=== PATIENT | female | born 1940 | race Caucasian/White ===

== ENCOUNTER → 2017-01-28 | Outpatient (CLI) | payer OTHER ==
[~2017-01-28] MED LIST: CIPR500T94 PO; LEVO50TA5 PO; LISI-338 PO; PRAV20TA2 PO
[2017-01-28 12:00] LABS: CALCIUM 8.7 mg/dL (8.5-10.1); GFR 53.8
== END | disposition home or self-care (01) ==
LOC: LAB 10:38
PROVIDERS: ATTEND Internal Medicine Cardiovascular Disease
DX: R94.31 Abnormal electrocardiogram [ECG] [EKG] (principal); R06.09 Other forms of dyspnea
CPT/HCPCS: 36415; 80048

== ENCOUNTER → 2017-12-05 | Outpatient (CLI) | payer OTHER ==
[~2017-12-05] MED LIST changes: +IOHEXOL 240 MG/ML 50ML VIAL. ONE; +IOHEXOL 240 MG/ML 50ML VIAL. PO ONE; +IOHEXOL 300 MG/ML 75 ML VIAL. IV ONE
--- NOTE | 2017-12-05 14:49 | RAD ---
CT scan of the abdomen and pelvis with contrast 12/05/2017 Clinical history: Chronic left-sided abdominal pain with nocturia and hematuria. Fatigue. TECHNIQUE: After the oral and intravenous administration of contrast, contiguous, 5 mm axial sections were obtained through the abdomen and pelvis. 75 cc of Omnipaque 350 were administered intravenously during this examination. One or more of the following individualized dose reduction techniques were utilized for this study: 1. Automated exposure control. 2. Adjustment of the mA and/or kV according to patient size. 3. Use of iterative reconstruction technique. FINDINGS: Images through the lung bases demonstrate mild cardiomegaly. Scattered coronary calcifications are seen. Minimal dependent subsegmental atelectasis is seen involving both lower lobes. The liver is mildly enlarged measuring 20 cm in length. Decreased attenuation of the liver parenchyma is seen consistent with mild fatty infiltration. The spleen, pancreas, adrenal glands and kidneys are within normal limits. Moderate atherosclerotic calcification of the abdominal aorta is seen. The abdominal aorta tapers normally. Calcified gallstones are seen within the gallbladder. No free fluid or free air is seen within the abdomen. There is no evidence of bowel obstruction. A focal area of wall thickening is seen involving the mid transverse colon. This measures 5 cm in length. Increased density is seen within the adjacent fat. These findings could be seen with a focal colitis; however, a neoplasm (colon cancer) could have an identical appearance and is not excluded. Clinical correlation is recommended. Prominent mesenteric lymph nodes are seen near this mass which measure 5 mm to 1.1 cm in size. They could be reactive. Neoplastic involvement is not excluded. Images through the pelvis demonstrate the urinary bladder distended with urine. Calcifications are seen within the pelvis consistent with phleboliths. No adnexal mass is seen. No free fluid is noted. Mild S-shaped curvature of the thoracolumbar spine is seen. Degenerative changes are seen involving the lower thoracic and throughout the lumbar spine and both hips. IMPRESSION: 5 cm focal area of wall thickening is seen involving the mid transverse colon. Increased density is seen within the adjacent fat. This findings could represent a focal colitis; however, a neoplasm (colon cancer) could have a similar appearance and is not excluded. Clinical correlation is recommended. Electronically signed by: Morgan Mckenzie MD (12/05/2017 2:46 PM) [id number]
== END | disposition home or self-care (01) ==
LOC: CT 12:33
PROVIDERS: ATTEND Family Medicine
DX: N39.0 Urinary tract infection, site not specified (principal); R10.12 Left upper quadrant pain; R10.32 Left lower quadrant pain; R35.1 Nocturia; R53.83 Other fatigue
CPT/HCPCS: 74177; Q9966; Q9967

== ENCOUNTER 2017-12-08 11:16 | Observation (INO) | payer OTHER ==
[~2017-12-08] VITALS: Ht 162.6 cm; Wt 91.7 kg
[~2017-12-08 11:16] MED LIST changes: -IOHEXOL 240 MG/ML 50ML VIAL. ONE; -IOHEXOL 240 MG/ML 50ML VIAL. PO ONE; -IOHEXOL 300 MG/ML 75 ML VIAL. IV ONE
[2017-12-08] MEDS ORDERED: POTA10TA10 PO (13:13)
[2017-12-08] MEDS ORDERED: FURO20TA3 PO (13:13)
[2017-12-08] MEDS ORDERED: ONDANSETRON PF 4 MG/2 ML VIAL. IV PRN (13:15)
[2017-12-08] MEDS ORDERED: IOHEXOL 240 MG/ML 50ML VIAL. ONE (13:15)
[2017-12-08 13:19] VITALS: BP 151/76
[2017-12-08 13:26] LABS: BASO # 0.1 x10^3/uL (0.0-0.2); BASO % 1 % (0-3); EOS % 0 % (0-3); HEMATOCRIT 33.3 % (36.0-47.0); HEMOGLOBIN 11.2 g/dL (12.0-15.5); LYMPH # 1.9 x10^3/uL (1.0-4.8); LYMPH % 18 % (24-48); MEAN CORPUSCULAR HEMOGLOBIN 30 pg (25-35); MEAN CORPUSCULAR HGB CONC 34 g/dL (31-37); MEAN CORPUSCULAR VOLUME 88 fL (79-100); MONO # 2.1 x10^3/uL (0.0-1.1); MONO % 20 % (0-9); NEUT # 6.3 x10^3uL (1.8-7.7); NEUT % 61 % (31-73); PLATELET COUNT 104 x10^3/uL (140-400); RED BLOOD COUNT 3.79 x10^6/uL (3.50-5.40); RED CELL DISTRIBUTION WIDTH 16.2 % (11.5-14.5); WHITE BLOOD COUNT 10.5 x10^3/uL (4.0-11.0)
[2017-12-08 13:38] LABS: ALBUMIN 3.7 g/dL (3.4-5.0); ALBUMIN/GLOBULIN RATIO 0.9 (1.0-1.7); CALCIUM 8.6 mg/dL (8.5-10.1); CREATININE 0.9 mg/dL (0.6-1.0); GFR 60.6; TOTAL BILIRUBIN 0.7 mg/dL (0.2-1.0); TOTAL PROTEIN 7.8 g/dL (6.4-8.2)
[2017-12-08] MEDS ORDERED: MORPHINE SULFATE 2 MG/ML DISP.SYRIN. IV PRN (14:00)
[2017-12-08 14:06] LABS: AMYLASE 44 U/L (25-115); LIPASE 62 U/L (73-393)
[2017-12-08 14:13] LABS: % BANDS 6 % (0-9); % BASOS 0 % (0-3); % EOS 0 % (0-5); % LYMPHS 15 % (24-48); % METAS 1 % (0-0); % MONOS 18 % (0-10); % MYELOS 1 % (0-0); % SEGS 59 % (35-66); PLT ESTIMATE DECREASED (ADEQUATE)
[2017-12-08 15:11] VITALS: BP 130/74
[2017-12-08] MEDS ORDERED: MORPHINE SULFATE 4 MG/ML DISP.SYRIN. IV PRN (15:52)
[2017-12-08] MEDS: IV NORMAL SALINE 1,000ML 1,000 ML IV SCH ×2 (17:11→23:15)
--- NOTE | 2017-12-08 18:41 | NUR ---
NURSING ADMISSION NOTE: Patient arrived to room 123 at 1235 via wheelchair and accompanied by admission perpetual inventory clerk. Patient oriented to room, call light/TV, and bathroom.
[2017-12-08 19:21] LABS: CLARITY,URINE HAZY; COLOR,URINE YELLOW
[2017-12-08 19:22] LABS: BACTERIA,URINE 0 /HPF (0-FEW); BILIRUBIN,URINE NEG (NEG); GLUCOSE,URINE NEG (NEG); NITRITE,URINE NEG (NEG); RBC,URINE OCC /HPF (0-2); SQUAMOUS EPITHELIAL CELL,UR MOD /LPF; UROBILINOGEN,URINE 0.2 mg/dL (0.2 mg/dL); WBC,URINE OCC /HPF (0-4)
[2017-12-08 19:23] VITALS: BP 130/69
[2017-12-08] MEDS: LACTOBACILLUS RHAMNOSUS GG 1 CAPSULE. PO SCH (21:26)
[2017-12-08] MEDS: metroNIDAZOLE 500 MG TABLET PO SCH (21:26)
[2017-12-08 23:13] VITALS: BP 148/69
[2017-12-09 05:23] VITALS: BP 113/65
[2017-12-09 06:37] LABS: BASO % 1 % (0-3); EOS % 0 % (0-3); HEMATOCRIT 27.6 % (36.0-47.0); HEMOGLOBIN 9.4 g/dL (12.0-15.5); LYMPH # 1.3 x10^3/uL (1.0-4.8); LYMPH % 16 % (24-48); MEAN CORPUSCULAR HEMOGLOBIN 30 pg (25-35); MEAN CORPUSCULAR HGB CONC 34 g/dL (31-37); MEAN CORPUSCULAR VOLUME 87 fL (79-100); MONO # 2.2 x10^3/uL (0.0-1.1); MONO % 26 % (0-9); NEUT # 4.9 x10^3uL (1.8-7.7); NEUT % 57 % (31-73); PLATELET COUNT 88 x10^3/uL (140-400); RED BLOOD COUNT 3.17 x10^6/uL (3.50-5.40); RED CELL DISTRIBUTION WIDTH 15.8 % (11.5-14.5); WHITE BLOOD COUNT 8.5 x10^3/uL (4.0-11.0)
[2017-12-09 06:39] LABS: CALCIUM 8.3 mg/dL (8.5-10.1); CREATININE 0.8 mg/dL (0.6-1.0); GFR 69.4; POTASSIUM 4.1 mmol/L (3.5-5.1)
[2017-12-09] MEDS: LACTOBACILLUS RHAMNOSUS GG 1 CAPSULE. PO SCH (08:59)
[2017-12-09] MEDS: metroNIDAZOLE 500 MG TABLET PO SCH ×2 (08:59→14:25)
[2017-12-09] MEDS ORDERED: PNEUMOC CONJ VACC 23-VALENT 0.5 ML VIAL. VAX IM ONE (09:00)
[2017-12-09] MEDS: IV NORMAL SALINE 1,000ML 1,000 ML IV SCH (09:04)
[2017-12-09] MEDS ORDERED: LEVO500T59 PO (09:58)
[2017-12-09] MEDS ORDERED: METR500T PO (09:58)
[2017-12-09 10:45] VITALS: BP 115/68
--- NOTE | 2017-12-09 14:50 | NUR ---
Discharge Note: JANINA NANCE Discharge instructions and discharge home medications reviewed with PATIENT and a copy given. All questions have been answered and understanding verbalized. The following instructions and handouts were given: MEDICATIONS, FOLLOW UP INSTRUCTIONS, EDUCATIONAL HANDOUTS GIVEN. Discontinued lines and drains: PERIPHERAL IV DISCONTINUED WITH NO COMPLICATIONS. Patient discharged to HOME with FAMILY via PRIVATE VEHICLE.
--- NOTE | 2017-12-10 02:30 | DS ---
DATE OF DISCHARGE: 12/09/2017 HOSPITAL COURSE: The patient is a 77-year-old female who came in with abdominal pain. She had a CT scan done of her abdomen and pelvis and that demonstrated an 5 cm area of wall thickening involving the mid transverse colon. The patient received IV antibiotic therapy and she made excellent progress. She wanted to be discharged home to be followed up with her for a wedding coming up, but in any case demanded to be discharged. The patient's hemoglobin dropped from 11.2 down to 9.4 and 27. The patient did improve with IV antibiotics. We will continue on such as an outpatient. Otherwise, the patient made good progress during the rest of her hospitalization. There were no complications. See MRAD. Decreased activity. She is to follow up with Gastroenterology for further testing and make sure that we follow up on her for her anemia as well. She will continue on metronidazole and Levaquin orally. IMPRESSION: Therefore of colitis, probably infectious; anemia of chronic disease, abdominal pain. The patient will be discharged home. See EMRAD. Probably stay on a low fiber diet until this clears up and also follow up with Gastroenterology. Decreased activity. PLAN: As above. ANTHONY ALCALA MD DR: VICTOR M/abilio JOB#: [id number] / [id number]
== END 2017-12-09 14:50 | disposition home or self-care (01) ==
LOC: 1 SOUTH 12:16 → INTOOBSV 12:16
PROVIDERS: ADMIT Family Medicine; ATTEND Family Medicine
DX: K52.9 Noninfective gastroenteritis and colitis, unspecified (principal); A08.8 Other specified intestinal infections; D63.8 Anemia in other chronic diseases classified elsewhere; J44.9 Chronic obstructive pulmonary disease, unspecified; D37.4 Neoplasm of uncertain behavior of colon; E03.9 Hypothyroidism, unspecified; R93.3 Abnormal findings on diagnostic imaging of other parts of digestive tract; R59.0 Localized enlarged lymph nodes; Z23 Encounter for immunization
CPT/HCPCS: 36415; 80048; 80053; 81001; 82150; 83690; 85007; 85025; 87040; 87086; 90471; 90732; 96365; 96366; G0378; G0379; J1956; J7030

== ENCOUNTER 2018-04-25 21:42 | Inpatient (IN) | payer OTHER ==
[~2018-04-25] VITALS: Ht 157.5 cm; Wt 81.2 kg
[~2018-04-25 21:42] MED LIST changes: -ALBUTEROL SULFATE 2.5 MG/3 ML NEBU. NEB PRN; -ATROPINE 0.5 MG/5 ML DISP.SYRIN. IV PRN; -DOXY100T PO; -IV RINGERS SOLUTION,LACTATED 1,000 ML IV SCH; -LACT1CAP19 PO; -LIDOCAINE 2% PF Vial for OR 5 ML VIAL. ONE; -NALOXONE 0.4 MG/ML VIAL. IV PRN; -ONDA4TAB12 PO; -ONDANSETRON PF 4 MG/2 ML VIAL. IV PRN; -PROPOFOL 20 ML IV ONE; -diphenhydrAMINE 50 MG/ML VIAL IV PRN
--- NOTE | 2018-04-25 22:15 | PHYS DOC ---
Adult General Chief Complaint Chief Complaint: POST-OP PROBLEM HPI HPI 77-year-old female presents with fever. The patient had an EGD and colonoscopy today. Her discharge instructions stated that if she had a fever above 100 she should come to the emergency room. Patient's caregiver states that she had a fever of 102 at home when they became concerned so they came to emergency room. Patient denies chills. She denies shortness of breath, chest pain, cough. She has no additional complaints. She is a little worried about her results from today as some further testing including a CT scan was ordered. Review of Systems Review of Systems Constitutional: Fever [] Eyes: Denies change in visual acuity, redness, or eye pain [] HENT: Denies nasal congestion or sore throat [] Respiratory: Denies cough or shortness of breath [] Cardiovascular: No additional information not addressed in HPI [] GI: Denies abdominal pain, nausea, vomiting, bloody stools or diarrhea [] : Denies dysuria or hematuria [] Musculoskeletal: Denies back pain or joint pain [] Integument: Denies rash or skin lesions [] Neurologic: Denies headache, focal weakness or sensory changes [] Endocrine: Denies polyuria or polydipsia [] All other systems were reviewed and found to be within normal limits, except as documented in this note. Allergies Allergies Allergies Coded Allergies Type Severity Reaction Last Updated Verified No Known Allergies Allergy Unknown 02/08/14 Yes Physical Exam Physical Exam Constitutional: Well developed, well nourished, no acute distress, non-toxic appearance. [] HENT: Normocephalic, atraumatic, bilateral external ears normal, oropharynx moist, no oral exudates, nose normal. [] Eyes: PERRLA, EOMI, conjunctiva normal, no discharge. [] Neck: Normal range of motion, no tenderness, supple, no stridor. [] Cardiovascular:Heart rate regular rhythm, 3/6 systolic murmur [] Lungs & Thorax: Bilateral breath sounds clear to auscultation [] Abdomen: Bowel sounds normal, soft, no tenderness, no masses, no pulsatile masses. [] Skin: Warm, dry, no erythema, no rash. [] Back: No tenderness, no CVA tenderness. [] Extremities: No tenderness, no cyanosis, no clubbing, ROM intact, no edema. [] Neurologic: Alert and oriented, normal motor function, normal sensory function, no focal deficits noted. [] Psychologic: Affect normal, judgement normal, mood normal. [] EKG EKG [] Radiology/Procedures Radiology/Procedures [] Impressions: Indication:post operative fever TECHNIQUE:PA and lateral views of the chest COMPARISON: None FINDINGS: Patient is slightly rotated to the right side. There is S-shaped scoliosis of the thoracal lumbar spine. Heart is normal in size. Diffuse bilateral interstitial opacities are seen without focal consolidation. No pneumothorax or pleural effusion. Visualized bony thorax is within normal limits. IMPRESSION: Bilateral interstitial process likely secondary to atypical/viral infection. Electronically signed by: Yariel Chen DO (04/25/2018 11:06 PM) [facility] DICTATED AND SIGNED BY: YARIEL CHEN DO DATE: 04/25/18 [id number] CC: COREY WATTS DO; ANTHONY ALCALA MD ~ Course & Med Decision Making Course & Med Decision Making Pertinent Labs and Imaging studies reviewed. (See chart for details) Patient's chest x-ray is negative for acute finding. Her labs are significant for hemoglobin of 7.7. Review of her chart shows her hemoglobin several months ago was 9.4 and 11.2. Her Hemoccult was grossly negative; micro is pending. The patient has been feeling mildly short of breath, but this does not necessarily sound worse than baseline. I will hold off on transfusing her at this point. If her hemoglobin drops any further, she likely needs a transfusion. I discussed the case with Dr. Alcala and he has agreed to admission for further management. He advised transfusion with a hemoglobin below 7. The Hemoccult micro-was negative. [] Dragon Disclaimer Dragon Disclaimer This electronic medical record was generated, in whole or in part, using a voice recognition dictation system. Departure Departure: Referrals: ANTHONY ALCALA MD (PCP) COREY WATTS DO Apr 25, 2018 22:15
[2018-04-25 22:42] LABS: BASO # 0.1 x10^3/uL (0.0-0.2); BASO % 1 % (0-3); EOS % 0 % (0-3); HEMATOCRIT 24.3 % (36.0-47.0); HEMOGLOBIN 7.7 g/dL (12.0-15.5); LYMPH # 2.1 x10^3/uL (1.0-4.8); LYMPH % 17 % (24-48); MEAN CORPUSCULAR HEMOGLOBIN 25 pg (25-35); MEAN CORPUSCULAR HGB CONC 32 g/dL (31-37); MEAN CORPUSCULAR VOLUME 78 fL (79-100); MONO % 15 % (0-9); NEUT # 8.7 x10^3uL (1.8-7.7); NEUT % 67 % (31-73); PLATELET COUNT 155 x10^3/uL (140-400); RED BLOOD COUNT 3.12 x10^6/uL (3.50-5.40); WHITE BLOOD COUNT 12.9 x10^3/uL (4.0-11.0)
[2018-04-25 22:50] LABS: COLOR,URINE YELLOW
[2018-04-25 22:51] LABS: BACTERIA,URINE FEW /HPF (0-FEW); BILIRUBIN,URINE NEG (NEG); CLARITY,URINE HAZY; GLUCOSE,URINE NEG (NEG); NITRITE,URINE NEG (NEG); RBC,URINE 0 /HPF (0-2); SQUAMOUS EPITHELIAL CELL,UR MOD /LPF; UROBILINOGEN,URINE 0.2 mg/dL (0.2 mg/dL)
[2018-04-25 22:53] LABS: ALBUMIN 3.4 g/dL (3.4-5.0); ALBUMIN/GLOBULIN RATIO 0.9 (1.0-1.7); CALCIUM 8.2 mg/dL (8.5-10.1); CREATININE 0.9 mg/dL (0.6-1.0); GFR 60.6; POTASSIUM 4.2 mmol/L (3.5-5.1); TOTAL BILIRUBIN 0.5 mg/dL (0.2-1.0); TOTAL PROTEIN 7.4 g/dL (6.4-8.2)
[2018-04-25 23:09] LABS: % LYMPHS 12 % (24-48); % SEGS 72 % (35-66); HYPOCHROMIA SLIGHT; PLT ESTIMATE ADEQUATE (ADEQUATE)
--- NOTE | 2018-04-25 23:09 | RAD ---
Indication:post operative fever TECHNIQUE:PA and lateral views of the chest COMPARISON: None FINDINGS: Patient is slightly rotated to the right side. There is S-shaped scoliosis of the thoracal lumbar spine. Heart is normal in size. Diffuse bilateral interstitial opacities are seen without focal consolidation. No pneumothorax or pleural effusion. Visualized bony thorax is within normal limits. IMPRESSION: Bilateral interstitial process likely secondary to atypical/viral infection. Electronically signed by: Yariel Chen DO (04/25/2018 11:06 PM) [facility]
[2018-04-25 23:10] LABS: % BANDS 10 % (0-9); % MONOS 6 % (0-10)
[2018-04-25 23:50] LABS: FECAL OB PT NEGATIVE (NEG)
[2018-04-26] VITALS (13 sets, daily range): BP systolic 105–150; BP diastolic 57–79
--- NOTE | 2018-04-26 00:40 | NUR ---
The patient, JANINA NANCE, 77 y/o, F admitted by ANTHONY ALCALA MD, was given written information regarding hospital policies, unit procedures and contact persons. Valuables were checked and noted. PT with history of constipation who had a colonoscopy 04/25, see report for details. Biopsy was taken. PT told to report to ER with temperatures over 100. PT with a temperature of 102 at home. PT upon lab draw discovered to have Hg of 7.7, admitted to the hospital for further evaluation. PT is otherwise symptom free. PT transported via EMS. PT walked from cart to bed. PT was noted to be steady on feet. PT oriented to unit and changed into a gown. PT insisting on staying in own shirt under gown, told that was fine. PT has stress incontinence and given pullup brief to change into. PT belongings noted. PT assessed and readied for bed, advised of lab draw in am.
[2018-04-26 06:26] LABS: BASO # 0.1 x10^3/uL (0.0-0.2); BASO % 1 % (0-3); EOS % 0 % (0-3); HEMATOCRIT 21.5 % (36.0-47.0); LYMPH # 1.9 x10^3/uL (1.0-4.8); LYMPH % 21 % (24-48); MEAN CORPUSCULAR HEMOGLOBIN 25 pg (25-35); MEAN CORPUSCULAR HGB CONC 32 g/dL (31-37); MEAN CORPUSCULAR VOLUME 78 fL (79-100); MONO # 2.4 x10^3/uL (0.0-1.1); MONO % 26 % (0-9); NEUT % 53 % (31-73); PLATELET COUNT 115 x10^3/uL (140-400); RED BLOOD COUNT 2.77 x10^6/uL (3.50-5.40); RED CELL DISTRIBUTION WIDTH 15.9 % (11.5-14.5); WHITE BLOOD COUNT 9.4 x10^3/uL (4.0-11.0)
[2018-04-26 06:28] LABS: CALCIUM 8.1 mg/dL (8.5-10.1); CREATININE 0.9 mg/dL (0.6-1.0); GFR 60.6; POTASSIUM 3.7 mmol/L (3.5-5.1)
[2018-04-26] MEDS: LEVOTHYROXINE 175 MCG TABLET PO SCH (07:57)
[2018-04-26] MEDS: PANTOPRAZOLE 40 MG TABLET. PO SCH (07:57)
--- NOTE | 2018-04-26 08:00 | NUR ---
Pt is alert and oriented x4, forgetful. Pt asked RN why she needed to be here, RN educated patient on her hemoglobin level and that Dr Arnett was thinking about what to do. PT verbalized understanding. Denies any pain. Will continue to monitor.
[2018-04-26] MEDS: SUCRALFATE 1 GM TABLET. PO SCH ×4 (08:17→20:49)
[2018-04-26] MEDS: POTASSIUM CHLORIDE 10 MEQ TABLET.ER. PO SCH (08:18)
--- NOTE | 2018-04-26 09:35 | NUR ---
Blood transfusion started at 0935. Tubing Primed with NS and then primed with blood. Transfusion started at 60ml/hr, patient closely monitored for 15 min. No reaction noted, transfusion increased to 150ml/hr. Will continue to monitor.
[2018-04-26] MEDS ORDERED: FURO20TA3 PO (09:43)
[2018-04-26] MEDS ORDERED: ONDA4TAB12 PO (09:43)
--- NOTE | 2018-04-26 11:35 | NUR ---
Blood completed, no signs of reaction. Pt tolerated well.
[2018-04-26] MEDS: LACTOBACILLUS RHAMNOSUS GG 1 CAPSULE. PO SCH ×2 (11:44→20:49)
[2018-04-26] MEDS: cefTRIAXone IV Push 1 GM VIAL. IVP SCH (11:45)
[2018-04-26] MEDS: DOXYCYCLINE HYCLATE 100 MG TABLET PO SCH ×2 (11:45→20:49)
--- NOTE | 2018-04-26 12:14 | NUR ---
Blood transfusion started at 1157. Tubing Primed with NS and then primed with blood. Transfusion started at 60ml/hr, patient closely monitored for 15 min. No reaction noted, transfusion increased to 150ml/hr. Will continue to monitor.
[2018-04-26] MEDS ORDERED: FUROSEMIDE 20 MG/2 ML VIAL IVP ONE (14:00)
--- NOTE | 2018-04-26 14:40 | NUR ---
Pts blood transfusions complete. Pts O2 sats about 93% on RA, was 96-97%, crackles audible in bases. Pt takes 20mg po lasix daily. RN notified Dr Arnett of findings, orders for IV lasix and cxray. Will continue to monitor.
--- NOTE | 2018-04-26 15:21 | RAD ---
AP and Lateral Views of the Chest 04/26/2018 2:38 PM Indication: SHORT OF AIR Comparison: 2 views of the chest, yesterday Findings: Bilateral infiltrates are improved in the interim. No pneumothorax, effusion, or focal consolidative process is identified on today's study. Heart size is normal. Bony thorax is unchanged. IMPRESSION: Interval improvement of bilateral infiltrates in the interim Electronically signed by: Villa Torres MD (04/26/2018 3:17 PM) [id number]
[2018-04-27 06:13] VITALS: BP 106/65
[2018-04-27 06:30] LABS: BASO % 1 % (0-3); EOS % 0 % (0-3); HEMATOCRIT 27.6 % (36.0-47.0); LYMPH # 1.8 x10^3/uL (1.0-4.8); LYMPH % 22 % (24-48); MEAN CORPUSCULAR HEMOGLOBIN 26 pg (25-35); MEAN CORPUSCULAR HGB CONC 33 g/dL (31-37); MEAN CORPUSCULAR VOLUME 80 fL (79-100); MONO # 2.3 x10^3/uL (0.0-1.1); MONO % 28 % (0-9); NEUT % 50 % (31-73); PLATELET COUNT 113 x10^3/uL (140-400); RED BLOOD COUNT 3.44 x10^6/uL (3.50-5.40); RED CELL DISTRIBUTION WIDTH 16.9 % (11.5-14.5); WHITE BLOOD COUNT 8.1 x10^3/uL (4.0-11.0)
[2018-04-27] MEDS: LEVOTHYROXINE 175 MCG TABLET PO SCH (07:45)
[2018-04-27] MEDS: PANTOPRAZOLE 40 MG TABLET. PO SCH (07:45)
[2018-04-27] MEDS: DOXYCYCLINE HYCLATE 100 MG TABLET PO SCH ×2 (08:42→20:26)
[2018-04-27] MEDS: LACTOBACILLUS RHAMNOSUS GG 1 CAPSULE. PO SCH ×2 (08:42→20:26)
[2018-04-27] MEDS: POTASSIUM CHLORIDE 10 MEQ TABLET.ER. PO SCH (08:43)
[2018-04-27] MEDS: SUCRALFATE 1 GM TABLET. PO SCH ×4 (08:44→20:26)
[2018-04-27] MEDS: cefTRIAXone IV Push 1 GM VIAL. IVP SCH (08:49)
[2018-04-27] MEDS ORDERED: IOHEXOL 240 MG/ML 50ML VIAL. PO ONE (10:30)
[2018-04-27] MEDS ORDERED: IOHEXOL 300 MG/ML 75 ML VIAL. IV ONE (10:30)
[2018-04-27 10:49] VITALS: BP 116/71
--- NOTE | 2018-04-27 13:04 | RAD ---
PQRS Compliance Statement: One or more of the following individualized dose reduction techniques were utilized for this examination: 1. Automated exposure control 2. Adjustment of the mA and/or kV according to patient size 3. Use of iterative reconstruction technique CT abdomen/pelvis with contrast 04/27/2018 11:34 AM INDICATION: Colon cancer. COMPARISON: CT abdomen/pelvis December 05, 2017 TECHNIQUE: Multiple axial CT images of the abdomen and pelvis were obtained after the intravenous administration of 75 mL Omnipaque 300. Coronal and sagittal reformats are provided. FINDINGS: There is a 4 mm solid noncalcified pulmonary nodule in the right lower lobe (series 2, image 5). Heart size is within normal limits. No suspicious hepatic lesion is identified. Spleen is nonenlarged. Adrenal glands are normal. Pancreas is normal in appearance. Calcified gallstones are identified within the gallbladder. The abdominal aorta is normal in course and caliber. There is no abdominal free fluid. There is no free intraperitoneal air. The kidneys enhance symmetrically. There is no suspicious renal mass. There is no hydronephrosis. There are no suspected calculi within the kidneys, ureters or urinary bladder. There is a 5 mm hypodense lesion in the anterior interpolar left kidney which is statistically favor to represent a simple cyst. There is an apple core lesion involving the proximal transverse colon measuring approximately 5.5 cm with circumferential wall thickening. Proximal fecal stasis is noted. The distal bowel appears predominantly decompressed. There is a pericolonic mesenteric lymph node measuring 11 mm by short axis (series 2, image 66) suspicious for fred metastasis. Additional pericolonic lymph node measures 9 mm by short axis with rounded morphology and abnormal enhancement (series 2, image 81) suspicious for fred metastasis. There is a soft tissue nodule in the anterior omentum measuring 7 mm (series 2, image 92). Left common iliac lymph node is pathologically enlarged measuring 2.0 cm suspicious for fred metastasis. Alissa hepatis lymph nodes are borderline in size measuring 8 mm and likely reactive. These findings appear progressed since December 05, 2017. For example, the left common iliac lymph node is new. Mesenteric lymph nodes are increased in size. Urinary bladder is within normal limits given degree of distention. Uterus and adnexa are normal. There is dextroconvex scoliosis of the lumbar spine with apex dextrocurvature at L2-L3. There is right lateral listhesis of L3 on L4. No suspicious osseous lesions are identified. IMPRESSION: 1. Redemonstration of a 5.5 cm segment of transverse colon with abnormal circumferential wall thickening compatible with an apple core lesion. Pericolonic and mesenteric lymph nodes are identified which appear pathologically enlarged and progressed since the prior examination. Degree of adjacent inflammation appears similar. Findings are in keeping with the provided history of colon cancer. 2. New left common iliac lymph node which is pathologically enlarged measuring 2.0 cm. 3. Right lower lobe solid noncalcified pulmonary nodule measuring 4 mm, stable. Electronically signed by: Neda Cortez MD (04/27/2018 1:00 PM) [id number]
[2018-04-27 14:38] VITALS: BP 149/84
[2018-04-27 19:23] VITALS: BP 139/75
[2018-04-27 22:53] VITALS: BP 125/67
--- NOTE | 2018-04-28 00:56 | PN ---
DATE: 04/27/2018 SUBJECTIVE: A 77-year-old female in with rectal bleeding, colon cancer, anemia, blood transfusion and a like feeling a little better after blood transfusion. OBJECTIVE: VITAL SIGNS: Blood pressure 140/80, respiratory rate 20, pulse 65, afebrile. GENERAL: The patient is alert and oriented. LUNGS: Diminished throughout, but clear. CARDIOVASCULAR: Regular sinus rhythm. The patient also receiving IV antibiotic therapy for possible pneumonia as well. The patient's otherwise CT scan of abdomen and pelvis demonstrates the apple core lesion of the transverse colon. IMPRESSION: 1. Pneumonia of unspecified etiology, community acquired as well as that of the apple core colon cancer lesion. We are still awaiting path report. 2. Anemia secondary to acute gastrointestinal bleed. Continue with monitoring and IV antibiotic therapy. ANTHONY ALCALA MD DR: VICTOR M/abilio JOB#: [id number] / [id number]
[2018-04-28 05:05] VITALS: BP 105/63
[2018-04-28 07:02] LABS: BASO % 1 % (0-3); EOS % 0 % (0-3); HEMATOCRIT 27.4 % (36.0-47.0); HEMOGLOBIN 9.1 g/dL (12.0-15.5); LYMPH # 1.5 x10^3/uL (1.0-4.8); LYMPH % 20 % (24-48); MEAN CORPUSCULAR HEMOGLOBIN 27 pg (25-35); MEAN CORPUSCULAR HGB CONC 33 g/dL (31-37); MEAN CORPUSCULAR VOLUME 80 fL (79-100); MONO # 1.7 x10^3/uL (0.0-1.1); MONO % 23 % (0-9); NEUT # 4.1 x10^3uL (1.8-7.7); NEUT % 56 % (31-73); PLATELET COUNT 116 x10^3/uL (140-400); RED BLOOD COUNT 3.42 x10^6/uL (3.50-5.40); RED CELL DISTRIBUTION WIDTH 17.2 % (11.5-14.5); WHITE BLOOD COUNT 7.4 x10^3/uL (4.0-11.0)
[2018-04-28] MEDS: LEVOTHYROXINE 175 MCG TABLET PO SCH (07:51)
[2018-04-28] MEDS: PANTOPRAZOLE 40 MG TABLET. PO SCH (07:51)
[2018-04-28] MEDS: POTASSIUM CHLORIDE 10 MEQ TABLET.ER. PO SCH (08:45)
[2018-04-28] MEDS: DOXYCYCLINE HYCLATE 100 MG TABLET PO SCH (08:46)
[2018-04-28] MEDS: LACTOBACILLUS RHAMNOSUS GG 1 CAPSULE. PO SCH (08:46)
[2018-04-28] MEDS: SUCRALFATE 1 GM TABLET. PO SCH (08:46)
[2018-04-28] MEDS: cefTRIAXone IV Push 1 GM VIAL. IVP SCH (08:48)
[2018-04-28] MEDS ORDERED: DOXY100T PO (10:16)
[2018-04-28] MEDS ORDERED: LACT1CAP19 PO (10:16)
--- NOTE | 2018-04-28 11:19 | NUR ---
NURSING DISCHARGE NOTE: Patient discharged to home with home health services via ambulation and accompanied by her tanker truck driver. Verbal and written medication and follow up instructions were given and understanding was acknowledged.
== END 2018-04-28 10:55 | disposition home health service (06) | DRG 871 ==
LOC: ER 21:42 → 1 SOUTH 23:40
PROVIDERS: ADMIT Family Medicine; ATTEND Family Medicine
PROC: 30233N1 Transfusion of Nonautologous Red Blood Cells into Peripheral Vein, Percutaneous Approach (ICD-10-PCS; principal; 2018-04-27)
DX: A41.9 Sepsis, unspecified organism (principal); J18.9 Pneumonia, unspecified organism; K92.2 Gastrointestinal hemorrhage, unspecified; C18.9 Malignant neoplasm of colon, unspecified; D62 Acute posthemorrhagic anemia; J44.0 Chronic obstructive pulmonary disease with (acute) lower respiratory infection; N39.0 Urinary tract infection, site not specified; E61.1 Iron deficiency; D69.6 Thrombocytopenia, unspecified; I10 Essential (primary) hypertension; E87.6 Hypokalemia; B34.9 Viral infection, unspecified; E03.9 Hypothyroidism, unspecified; D64.9 Anemia, unspecified; Z79.899 Other long term (current) drug therapy
CPT/HCPCS: 36415; 71046; 74177; 80048; 80053; 81001; 82274; 83605; 85007; 85025; 85610; 85730; 86850; 86900; 86901; 86920; 87086; 87186; J0696; P9016; Q9966; Q9967; 99285-25

== ENCOUNTER → 2018-04-25 | Day surgery (SDC) | payer OTHER ==
[~2018-04-25] MED LIST changes: +ALBUTEROL SULFATE 2.5 MG/3 ML NEBU. NEB PRN; +ATROPINE 0.5 MG/5 ML DISP.SYRIN. IV PRN; +DOXY100T PO; +FURO20TA3 PO; +IV RINGERS SOLUTION,LACTATED 1,000 ML IV SCH; +LACT1CAP19 PO; +LEVO500T59 PO; +LIDOCAINE 2% PF Vial for OR 5 ML VIAL. ONE; +METR500T PO; +NALOXONE 0.4 MG/ML VIAL. IV PRN; +ONDA4TAB12 PO; +ONDANSETRON PF 4 MG/2 ML VIAL. IV PRN; +PANT20TA58 PO; +POTA10TA10 PO; +PROPOFOL 20 ML IV ONE; +SUCR1TAB35 PO; +diphenhydrAMINE 50 MG/ML VIAL IV PRN
[2018-04-25 13:18] VITALS: BP 140/72
== END | disposition home or self-care (01) ==
LOC: SURG 10:57
PROVIDERS: ATTEND Internal Medicine Gastroenterology
DX: C18.6 Malignant neoplasm of descending colon (principal); K29.50 Unspecified chronic gastritis without bleeding; D50.9 Iron deficiency anemia, unspecified; J44.9 Chronic obstructive pulmonary disease, unspecified; E03.9 Hypothyroidism, unspecified; Z79.899 Other long term (current) drug therapy; Z87.440 Personal history of urinary (tract) infections; Z87.19 Personal history of other diseases of the digestive system
CPT/HCPCS: 43239; 45380; 45381; J2704; J7120; J2001

== ENCOUNTER → 2018-05-26 | Outpatient (CLI) | payer OTHER ==
[2018-04-28 05:05] VITALS: BP 105/63
[~2018-05-26] MED LIST changes: +DOXY100T PO; +LACT1CAP19 PO; +ONDA4TAB12 PO
[2018-05-26 14:41] LABS: CALCIUM 8.9 mg/dL (8.5-10.1); CREATININE 0.8 mg/dL (0.6-1.0); GFR 69.4; POTASSIUM 3.8 mmol/L (3.5-5.1)
== END | disposition home or self-care (01) ==
LOC: LAB 13:56
PROVIDERS: ATTEND Internal Medicine Cardiovascular Disease
DX: I11.0 Hypertensive heart disease with heart failure (principal); I50.30 Unspecified diastolic (congestive) heart failure
CPT/HCPCS: 36415; 80048

== ENCOUNTER → 2018-07-17 | Outpatient (CLI) | payer OTHER ==
--- NOTE | 2018-07-17 18:30 | RAD ---
Right lower extremity venous Doppler dated 07/17/2018. No comparison available. Clinical indication: Right leg pain and edema. FINDINGS: Grayscale, color-flow and spectral waveform analysis performed to include the deep venous system of the right lower extremity. Normal compressibility, phasicity and augmentation of flow throughout. No filling defects are seen. IMPRESSION: No evidence of right lower extremity deep vein thrombosis. Electronically signed by: Keyon Webster MD (07/17/2018 6:27 PM) [facility]
== END | disposition home or self-care (01) ==
LOC: RAD 17:35
PROVIDERS: ATTEND Family Medicine
DX: M79.661 Pain in right lower leg (principal); R60.0 Localized edema
CPT/HCPCS: 93971

== ENCOUNTER → 2019-07-24 | Day surgery (SDC) | payer OTHER ==
[~2019-07-24] MED LIST changes: +ACETAMINOPHEN 325 MG TABLET PO PRN; +ALBUTEROL SULFATE 2.5 MG/3 ML NEBU. NEB PRN; +ATROPINE 0.5 MG/5 ML DISP.SYRIN. IV PRN; +HEPARIN PF 500 UNIT/5 ML DISP.SYRIN. ONE; +IV RINGERS SOLUTION,LACTATED 1,000 ML IV SCH; +LISI10TA2 PO; +MIDAZOLAM HCL PF 2 MG/2 ML VIAL. IV PRN; +ONDANSETRON PF 4 MG/2 ML VIAL. IV PRN; +PHENOL ORAL SPRAY 177ML BOTTLE. MM PRN; +PROPOFOL 20 ML IV ONE; +diphenhydrAMINE 50 MG/ML VIAL IV PRN
[2019-07-24] MEDS: IV RINGERS SOLUTION,LACTATED 1,000 ML IV SCH (09:46)
[2019-07-24 11:11] VITALS: BP 106/50
[2019-07-24] MEDS: HEPARIN PF 500 UNIT/5 ML DISP.SYRIN. IVP ONE ×2 (11:15→11:25)
== END ==
LOC: SURG 08:38
PROVIDERS: ATTEND Internal Medicine Gastroenterology
DX: Z08 Encounter for follow-up examination after completed treatment for malignant neoplasm (principal); D12.3 Benign neoplasm of transverse colon; E03.9 Hypothyroidism, unspecified; J44.9 Chronic obstructive pulmonary disease, unspecified; F41.9 Anxiety disorder, unspecified; Z98.890 Other specified postprocedural states; Z90.49 Acquired absence of other specified parts of digestive tract; Z98.0 Intestinal bypass and anastomosis status; Z85.038 Personal history of other malignant neoplasm of large intestine
CPT/HCPCS: 45385; J2704; J7120

== ENCOUNTER → 2021-01-07 | Outpatient (CLI) | payer MEDICARE ==
[2019-07-24 11:11] VITALS: BP 106/50
[~2021-01-07] MED LIST changes: -ACETAMINOPHEN 325 MG TABLET PO PRN; -ALBUTEROL SULFATE 2.5 MG/3 ML NEBU. NEB PRN; -ATROPINE 0.5 MG/5 ML DISP.SYRIN. IV PRN; -HEPARIN PF 500 UNIT/5 ML DISP.SYRIN. ONE; -IV RINGERS SOLUTION,LACTATED 1,000 ML IV SCH; -LISI-338 PO; +LISI-517 PO; +LISI10TA16 PO; -LISI10TA2 PO; -MIDAZOLAM HCL PF 2 MG/2 ML VIAL. IV PRN; -ONDANSETRON PF 4 MG/2 ML VIAL. IV PRN; -PHENOL ORAL SPRAY 177ML BOTTLE. MM PRN; -PROPOFOL 20 ML IV ONE; -diphenhydrAMINE 50 MG/ML VIAL IV PRN
--- NOTE | 2021-01-07 10:39 | RAD ---
EXAM: DUAL ENERGY X-RAY ABSORPTIOMETRY (DEXA). HISTORY: Postmenopausal screening. FINDINGS: The lowest measured T-score is 0.8 in the right hip, based on a bone mineral density of 1.0 55 g/cm^2. Refer to the worksheets for full detail. No comparison examinations are available. IMPRESSION: 1. Normal. Bone mineral density yields a T-score of -1.0 or greater. Fracture risk is low. 2. FRAX report: Not calculated. METHODOLOGY: Dual energy x-ray absorptiometry was performed to measure bone mineral density. The foll owing analysis is based on the 2019 Official Positions of the International Society for Clinical Dens itometry: Measurements of the hips and the average of L1-L4 are preferred. When the spine and/or hip cannot be feasibly measured or interpreted, or in the setting of hyperparathyroidism, distal radial bone minera l density may be measured. The lumbar spine T-score is based on the average bone mineral density of L1-L4. In the setting of art ifact or anatomic abnormality, some lumbar levels may be excluded, and the remaining levels used for calculation. A single lumbar level is not used for diagnosis, and if only a single level is available for assessment, another anatomic site will be used to assign a diagnosis. The hip T-score is based on the bone mineral density measurement of the femoral neck or total proxima l femur of either side, whichever is lowest. Bilateral mean values are not used for diagnosis. The forearm T-score is derived from 33% of the distal radius of the nondominant forearm. Electronically signed by: Disha Ku MD (01/07/2021 10:37 AM) [id number]
== END ==
LOC: DXRAD 10:03
PROVIDERS: ATTEND Family Medicine
DX: Z78.0 Asymptomatic menopausal state (principal)
CPT/HCPCS: 77080

== ENCOUNTER 2021-12-02 15:18 | Observation (INO) | payer MEDICARE ==
[~2021-12-02] VITALS: Ht 162.6 cm; Wt 87.5 kg
[~2021-12-02 15:18] MED LIST changes: -LISI-517 PO; +LISI5TAB15 PO
--- NOTE | 2021-12-02 15:53 | PHYS DOC ---
Past History Past Medical History: High Cholesterol, Hypertension Past Surgical History: No Surgical History Alcohol Use: None Drug Use: None General Adult EDM: Chief Complaint: OTHER COMPLAINTS HPI: HPI: Patient is a 81-year-old female who presents with vaginal bleeding. Symptoms been present for about 1 week and seem to be getting a little worse each day. She has not had any abdominal pain in association with the bleeding. No burning with urination. She has a history of colon cancer which is metastatic and also a history of leukemia. Patient is currently on palliative care. She denies any fever, abdominal pain, nausea, vomiting or diarrhea. No lightheadedness or weakness at this time. Review of Systems: Review of Systems: Constitutional: Denies fever Eyes: Denies change in visual acuity or eye pain HENT: Denies sore throat Respiratory: Denies shortness of breath Cardiovascular: Denies chest pain GI: Denies abd pain : Denies dysuria Musculoskeletal: Denies back or extremity injury Integument: Denies rash or skin lesions Neurologic: Denies headache, focal weakness or sensory changes All other systems were reviewed and found to be within normal limits, except as documented in this note. Allergies: Allergies: Allergies Coded Allergies Type Severity Reaction Last Updated Verified No Known Allergies Allergy Unknown 07/24/19 Yes Physical Exam: PE: Constitutional: Well developed, well nourished, no acute distress, non-toxic appearance. HENT: Normocephalic, atraumatic, bilateral external ears normal, mucosa moist, nose normal. Eyes: EOMI, conjunctiva normal, no discharge. Neck: Normal range of motion, supple, no stridor, no meningeal signs. Cardiovascular: Regular rate and rhythm Lungs & Thorax: Bilateral breath sounds clear to auscultation Abdomen: Soft, no tenderness or obvious masses Genitourinary: Normal external genitalia with dried blood present externally. On speculum examination the patient does have a little bit of blood at the cervical os. No palpable masses or tenderness on bimanual examination. Skin: Warm, dry, no erythema, no rash. Extremities: No tenderness, no cyanosis, no clubbing, ROM intact, no edema. Neurologic: Alert and oriented, normal motor function, normal sensory function, no focal deficits noted. Psychologic: Affect normal, judgement normal, mood normal. Current Patient Data: Vital Signs: Vital Signs Date Time Temp Pulse Resp B/P (MAP) Pulse Ox O2 Delivery O2 Flow Rate FiO2 12/02/21 15:38 98.3 67 18 141/60 (87) 98 Room Air EKG: EKG: [] Radiology/Procedures: Radiology/Procedures: [] Heart Score: Risk Factors: Risk Factors: DM, Current or recent (<one month) smoker, HTN, HLP, family history of CAD, obesity. Risk Scores: Score 0 - 3: 2.5% MACE over next 6 weeks - Discharge Home Score 4 - 6: 20.3% MACE over next 6 weeks - Admit for Clinical Observation Score 7 - 10: 72.7% MACE over next 6 weeks - Early Invasive Strategies Course & Med Decision Making: Course & Med Decision Making Pertinent Labs and Imaging studies reviewed. (See chart for details) [] Dragon Disclaimer: Dragon Disclaimer: This electronic medical record was generated, in whole or in part, using a voice recognition dictation system. Departure Departure: Referrals: JOSE GUADALUPE LORENZO MD (PCP) CRISPIN MARTINEZ MD Dec 02, 2021 15:53
[2021-12-02] MEDS ORDERED: IOHEXOL 300 MG/ML 75 ML VIAL. IV ONE (16:00)
[2021-12-02 16:33] LABS: BASO % 0 % (0-3); CALCIUM 8.6 mg/dL (8.5-10.1); CREATININE 1.1 mg/dL (0.6-1.0); EOS % 1 % (0-3); GFR 47.6; HEMATOCRIT 27.4 % (36.0-47.0); HEMOGLOBIN 9.4 g/dL (12.0-15.5); LYMPH # 1.2 x10^3/uL (1.0-4.8); LYMPH % 12 % (24-48); MEAN CORPUSCULAR HEMOGLOBIN 36 pg (25-35); MEAN CORPUSCULAR HGB CONC 34 g/dL (31-37); MEAN CORPUSCULAR VOLUME 105 fL (79-100); MONO # 2.5 x10^3/uL (0.0-1.1); MONO % 25 % (0-9); NEUT # 6.2 x10^3uL (1.8-7.7); NEUT % 62 % (31-73); POTASSIUM 3.5 mmol/L (3.5-5.1); RED BLOOD COUNT 2.61 x10^6/uL (3.50-5.40); RED CELL DISTRIBUTION WIDTH 16.6 % (11.5-14.5)
[2021-12-02 16:37] LABS: PLATELET COUNT 18 x10^3/uL (140-400)
[2021-12-02 16:39] LABS: ALBUMIN 3.7 g/dL (3.4-5.0); ALBUMIN/GLOBULIN RATIO 1.1 (1.0-1.7); TOTAL BILIRUBIN 0.7 mg/dL (0.2-1.0)
[2021-12-02 17:13] LABS: BACTERIA,URINE MANY /HPF (0-FEW); CLARITY,URINE CLOUDY; COLOR,URINE YELLOW; GLUCOSE,URINE NEG (NEG); NITRITE,URINE POS (NEG); RBC,URINE TNTC /HPF (0-2); UROBILINOGEN,URINE 0.2 mg/dL (0.2 mg/dL); WBC,URINE TNTC /HPF (0-4)
[2021-12-02 17:14] LABS: SQUAMOUS EPITHELIAL CELL,UR FEW /LPF
--- NOTE | 2021-12-02 17:20 | RAD ---
CT ABDOMEN+PELVIS W History: vaginal bleeding Comparison: 04/27/2018. Technique: After administration of intravenous contrast, helical CT of the abdomen and pelvis was per formed from the lung bases through the ischial tuberosities. Coronal and sagittal reconstructions wer e obtained. 60 mL of Omnipaque 300 were used. One or more of the following dose reduction techniques were utilized: Automated exposure control (AEC), Adjustment of mA and/or kV according to patient size , Use of iterative reconstruction technique such as ASiR, CT scan done according to ALARA and image g ently/image wisely Abdomen Findings: The visualized lung bases are clear. The liver, pancreas, spleen, and bilateral adrenal glands are normal. Cholelithiasis. Symmetric renal enhancement. There is no focal renal mass. There is no hydronephrosis. The visualized loops of small bowel are normal. Right hemicolectomy There is no evidence of bowel obs truction. There is no free fluid. There is no mesenteric or retroperitoneal adenopathy. The abdominal aorta is normal in caliber. Mild aortoiliac atherosclerotic disease. Pelvis Findings: Circumferential bladder wall thickening. Uterus is present and grossly normal in size for patient's a ge, but otherwise not well evaluated. No pelvic free fluid. There is no pelvic or inguinal adenopathy . Degenerative changes of the spine. Right convex lumbar curvature IMPRESSION: 1. Uterus is present and grossly normal in size, but otherwise not well evaluated. If clinically harpal anted, pelvic ultrasound could be obtained for further characterization. 2. Circumferential wall thickening, which could relate to incomplete distention or potentially cystit is. 3. Cholelithiasis. Electronically signed by: Jah Lainez MD (12/02/2021 5:17 PM) [facility]
[2021-12-02 18:04] LABS: % LYMPHS 22 % (24-48); % MONOS 16 % (0-10); % SEGS 62 % (35-66)
[2021-12-02 18:05] LABS: PLT ESTIMATE ADEQUATE (ADEQUATE)
[2021-12-02 18:06] LABS: ANISOCYTOSIS SLIGHT
[2021-12-02] MEDS ORDERED: IV NORMAL SALINE 50ML 50 ML ONE (18:41)
[2021-12-02] MEDS ORDERED: cefTRIAXone SODIUM 1 GM VIAL ONE (18:42)
[2021-12-02 19:16] LABS: INFLUENZA A PATIENT NEGATIVE (NEGATIVE); INFLUENZA B PATIENT NEGATIVE (NEGATIVE)
[2021-12-02 19:51] VITALS: BP 140/74
[2021-12-02 23:25] VITALS: BP 127/74
[2021-12-02 23:34] VITALS: BP 127/74
[2021-12-02 23:55] VITALS: BP 117/71
[2021-12-03 00:55] VITALS: BP 103/47
[2021-12-03 02:45] VITALS: BP 119/69
[2021-12-03 05:15] VITALS: BP 113/61
[2021-12-03 06:19] LABS: BASO % 0 % (0-3); EOS # 0.2 x10^3/uL (0.0-0.7); EOS % 3 % (0-3); HEMOGLOBIN 8.4 g/dL (12.0-15.5); LYMPH # 1.1 x10^3/uL (1.0-4.8); LYMPH % 13 % (24-48); MEAN CORPUSCULAR HEMOGLOBIN 37 pg (25-35); MEAN CORPUSCULAR HGB CONC 35 g/dL (31-37); MEAN CORPUSCULAR VOLUME 105 fL (79-100); MONO # 2.4 x10^3/uL (0.0-1.1); MONO % 29 % (0-9); NEUT # 4.5 x10^3uL (1.8-7.7); NEUT % 55 % (31-73); PLATELET COUNT 32 x10^3/uL (140-400); RED BLOOD COUNT 2.28 x10^6/uL (3.50-5.40); RED CELL DISTRIBUTION WIDTH 16.3 % (11.5-14.5); WHITE BLOOD COUNT 8.2 x10^3/uL (4.0-11.0)
[2021-12-03 06:27] LABS: CALCIUM 8.4 mg/dL (8.5-10.1); CREATININE 0.9 mg/dL (0.6-1.0); GFR 59.9
[2021-12-03 10:47] VITALS: BP 121/66
[2021-12-03 12:44] LABS: % ATYL 3 % (0-0); % BANDS 8 % (0-9); % EOS 1 % (0-5); % LYMPHS 24 % (24-48); % METAS 1 % (0-0); % MONOS 15 % (0-10); % MYELOS 1 % (0-0); % SEGS 47 % (35-66)
[2021-12-03 12:45] LABS: PLT ESTIMATE DECREASED (ADEQUATE)
[2021-12-03 12:46] LABS: ANISOCYTOSIS SLIGHT
[2021-12-03] MEDS ORDERED: CEFD300C PO (13:26)
--- NOTE | 2021-12-03 14:15 | SSS ---
DATE OF SERVICE: 12/03/2021 ADMIT DATE: 12/02/2021 HISTORY OF PRESENT ILLNESS: The patient is an 81-year-old female patient who presented to the Emergency Room with vaginal bleeding, symptoms have been present for almost a week and seems to be getting little worse each day. She has not had any abdominal pain in association with the bleeding. No burning with urination. She has a history of colon cancer, which metastasized, history of leukemia. The patient is currently on palliative care. She denies any fever, abdominal pain, nausea, vomiting, diarrhea. No lightheadedness or weakness. Her primary care physician is Dr. Velasquze and she was followed by the oncologist at [facility], but she is no longer seeking any active treatment. She was extensively investigated in the Emergency Room and was found to have had lab work and imaging studies. Her lab work showed a white cell count was 10,000. She has normochromic normocytic anemia. Her platelets are only 18,000. Her coagulation was normal and her chemistry was unremarkable. Her urinalysis showed the urine was cloudy with a pH of 6, the specific gravity of 1.025. There was small amount of protein. There was large amount of blood. Positive for nitrite. There was large amount of leukocyte esterase, too numerous to count rbc's and too numerous to count wbc's and many bacteria. Her influenza A and B were negative and coronavirus by rapid antigen testing was negative. The patient was admitted and has received 1 unit of platelets and also started on IV antibiotic in the form of ceftriaxone. The patient has no further episode of hematuria or vaginal bleeding. She stated that she is doing well and she has an appointment with her distribution spec. PHYSICAL EXAMINATION: GENERAL: When I examined her, she looked well and was clearly in no apparent respiratory distress. She was pale, but not jaundiced, cyanosed. No thyromegaly. No jugular venous distention. No limb edema. VITAL SIGNS: Her heart rate was 68, blood pressure was 121/66, temperature was 98, respiratory rate was 20 and oxygen saturation was 94%. HEAD, EYES, EARS, NOSE AND THROAT: Normocephalic, atraumatic. NECK: Supple. HEART: Showed normal first and second heart sounds. No gallop or murmur. CHEST: Clear to auscultation. No crepitation or rhonchi. ABDOMEN: Distended, soft, nontender. NEUROLOGIC: She was grossly intact. LABORATORY DATA: On admission showed a white cell count of 10,000, hemoglobin 9.4, hematocrit 27, MCV 105 and platelet count of 18,000 with a manual differential shows 62% polymorphs, 12% lymphocytes and 25% monocytes. Her PT/INR and APTT were normal. Her chemistry showed a serum sodium 139, potassium 3.5, chloride 106, bicarbonate 28, anion gap of 5, BUN 16, creatinine 1.1. Estimated GFR was 47 mL per minute. Her glucose was 96, calcium was 8.6. Total bilirubin, AST, ALT, alkaline phosphatase were normal. Total protein 7, albumin 3.7. She did receive 1 unit of platelets and her platelet has risen to 32,000. She has no more bleeding. The patient is already on palliative care and wanted to go home. Has no more hematuria. She was discharged home to continue on levothyroxine sodium 175 mcg once a day, lisinopril 10 mg once a day, potassium chloride 10 mEq once a day and pravastatin, sodium 20 mg daily as well as cefdinir 300 mg twice a day for 7 days. I did ask her to call the hospital for the result of the urine culture as we might have to adjust her antibiotic. FINAL DISCHARGE DIAGNOSES: Hematuria, resolved; thrombocytopenia, improving slowly, but the platelets are still abnormal and low at 32,000. She has colon cancer with metastases and some form of leukemia. Other medical problems include urinary tract infection, hypothyroidism, hypertension and hyperlipidemia. RODRIGO/RICKY DR: Jovanna TID: [id number]
== END 2021-12-03 13:30 | disposition home or self-care (01) ==
LOC: ER 15:18 → INTOOBSV 18:21 → ER HOLD 18:21 → 1 SOUTH 18:49
PROVIDERS: ADMIT Internal Medicine; ATTEND Internal Medicine
DX: R31.9 Hematuria, unspecified (principal); Z20.822 Contact with and (suspected) exposure to COVID-19; D69.6 Thrombocytopenia, unspecified; C95.90 Leukemia, unspecified not having achieved remission; C18.9 Malignant neoplasm of colon, unspecified; D64.9 Anemia, unspecified; I10 Essential (primary) hypertension; E03.9 Hypothyroidism, unspecified; E78.00 Pure hypercholesterolemia, unspecified; E78.5 Hyperlipidemia, unspecified; N39.0 Urinary tract infection, site not specified; N93.9 Abnormal uterine and vaginal bleeding, unspecified; Z51.5 Encounter for palliative care; Z85.038 Personal history of other malignant neoplasm of large intestine
CPT/HCPCS: 36415; 36430; 74177; 80048; 80053; 81001; 85007; 85025; 85610; 85730; 86850; 86900; 86901; 87428; 96365; 99285; G0378; J0696; P9035; Q9967; U0003; G0379